=== PATIENT | male | born 1985 | race Caucasian/White ===

== ENCOUNTER 2017-10-23 19:02 | Emergency (ER) | payer OTHER ==
[~2017-10-23] VITALS: Ht 193 cm; Wt 99.8 kg
[2017-10-23 19:30] VITALS: BP 116/71
[2017-10-23] MEDS ORDERED: Lidocaine 2% Visc 15ml soln ORAL ONE (20:00)
[2017-10-23] MEDS ORDERED: CHLORHEXIDINE473 ML MM (20:25)
[2017-10-23] MEDS ORDERED: TYLENOL EXTRA500 MG ORAL (20:25)
--- NOTE | 2017-10-23 20:25 | Emergency Room Report ---
History of Present Illness General Chief Complaint: Laceration Source: Patient Present Illness HPI 32-year-old male presents to the emergency department complaining of 10 out of 10 in severity pain to the tongue after sustaining laceration while playing basketball approximately 3 hours ago. Patient states he is up-to-date with tetanus vaccination. Patient denies bleeding at this time. Patient denies tooth pain or jaw pain. Patient denies loss of consciousness, nausea, vomiting changes in vision or dizziness.Denies CP, Palpitations, LOC, AMS, Sensation, paresthesias, or a sudden severe headache. Allergies: Coded Allergies: No Known Allergies (Unverified , 10/23/17) Patient History Past Medical History: see triage record Past Surgical History: none Pertinent Family History: none Immunizations: UTD Reviewed Nursing Documentation: PMH: Agreed, PSxH: Agreed Nursing Documentation-PMH Past Medical History: No Stated History Review of Systems All Other Systems: negative except mentioned in HPI Physical Exam Vital Signs Date Time Temp Pulse Resp B/P (MAP) Pulse Ox O2 Delivery O2 Flow Rate FiO2 10/23/17 19:13 98.2 83 18 116/71 96 Room Air Sp02 EP Interpretation: reviewed, normal General Appearance: no apparent distress, alert, GCS 15, non-toxic Head: normocephalic ENT: hearing grossly normal, normal voice, uvula midline, moist mucus membranes , other - 1.5cm tongue laceration approx that is not through and through. no tooth injury. Neck: full range of motion, no bony tend Respiratory: lungs clear, normal breath sounds, speaking full sentences Cardiovascular #1: regular rate, rhythm Musculoskeletal: back normal, gait/station normal, normal range of motion, non- tender Neurologic: alert, oriented x3, responsive, motor strength/tone normal, sensory intact, speech normal Skin: normal color, no rash, warm/dry, well hydrated Procedures Laceration/Wound Repair Laceration/Wound Repair : Consent: Verbal Wound Location: other - tongue Wound's Depth, Shape: linear Wound Length (cm): 1 Wound Explored: clean Irrigated w/ Saline (ccs): 500 Anesthesia: other - 2% viscous lidocaine Wound Repaired With: sutures - chromic Suture Size/Type: 4:0 Number of Sutures: 2 Layer Closure?: No Sterile Dressing Applied?: No Splint Applied?: No Sling Applied?: No Patient Tolerated: Well Complications: None Medical Decision Making SID Attestation Dr. Sparrow is my supervising Physician whom patient management has been discussed with. Diagnostic Impression: Primary Impression: Laceration of tongue without complication Qualified Codes: S01.512A - Laceration without foreign body of oral cavity, initial encounter ER Course 32-year-old male presents to the emergency department complaining of 10 out of 10 in severity pain to the tongue after sustaining laceration while playing basketball approximately 3 hours ago. Patient states he is up-to-date with tetanus vaccination. Patient denies bleeding at this time. Patient denies tooth pain or jaw pain. Patient denies loss of consciousness, nausea, vomiting changes in vision or dizziness.Denies CP, Palpitations, LOC, AMS, Sensation, paresthesias, or a sudden severe headache. Ddx considered but are not limited to laceration, hypoglossal nerve injury, cellulitis, amputation just to name a few. Vital signs: are WNL, pt. is afebrile H&PE are most consistent with: 1.5cm tongue laceration approx that is not through and through. no tooth injury. ORDERS: none required at this time, the diagnosis is clinical ED INTERVENTIONS: - The wound was copiously irrigated with normal saline, and explored for foreign body for which no FB was found. - pt. is anesthetized with 2 %lidocaine viscous solution - The wound was approximated and closed using 2 interrupted 4.0 Chromic Gut sutures. Discussed with patient: That we make every effort to approximate the laceration as best as we can so that scarring will be as cosmetically pleasing as possible with our limited cosmetic skill set in the Emergency dept. Regardless of our best efforts there will be scarring after laceration repair. The extent of scarring is unknown at this time. DISCHARGE: At this time pt. is stable for d/c to home. Will provide printed patient care instructions, and any necessary prescriptions. Care plan and follow up instructions have been discussed with the patient prior to discharge. Last Vital Signs Date Time Temp Pulse Resp B/P (MAP) Pulse Ox O2 Delivery O2 Flow Rate FiO2 10/23/17 19:13 98.2 83 18 116/71 96 Room Air Disposition: HOME, SELF-CARE Condition: Stable Scripts Acetaminophen* (TYLENOL EXTRA STRENGTH*) 500 Mg Tablet 500 MG ORAL Q6H, #20 TAB 0 Refills Prov: Casi Reddy P.A. 10/23/17 Chlorhexidine Gluconate (CHLORHEXIDINE GLUCONATE) 473 Ml Mouthwash 15 ML MM TID, #473 ML Prov: Casi Reddy 10/23/17 Referrals: NON PHYSICIAN (PCP) Patient Instructions: Tongue Laceration Additional Instructions: Take medications as directed - Rinse Three times daily * Follow up with a Primary Care Provider in 3-5 days, even if your symptoms have resolved. Return sooner to ED if new symptoms occur, or current symptoms become worse. - Please note that this Emergency Department Report was dictated using [employer] operator technology software, occasionally this can lead to erroneous entry secondary to interpretation by the dictation equipment. Casi Reddy Oct 23, 2017 20:25
[2017-10-23 20:35] VITALS: BP 119/71
[2017-10-23 20:38] VITALS: BP 119/71
== END 2017-10-23 20:38 | disposition home or self-care (01) ==
LOC: EMR 19:43
DX: S01.512A Laceration without foreign body of oral cavity, initial encounter (principal); Y93.67 Activity, basketball; Y92.89 Other specified places as the place of occurrence of the external cause
CPT/HCPCS: 99284